=== PATIENT | female | born 1950 | race Caucasian/White ===

== ENCOUNTER 2017-08-18 17:23 | Inpatient (IN) | payer OTHER ==
[~2017-08-18] VITALS: Ht 160 cm; Wt 70.1 kg
--- NOTE | ~2017-08-18 | WRIGHTHP ---
[place], [place] PATIENT HISTORY AND PHYSICAL EXAM [id number] #: [id number] ROOM: 312 DOCTOR: LES FRIEDMAN MD BIRTHDATE: [birth year] DOS: 08/20/2017 INITIAL PSYCHIATRIC EVALUATION CHIEF COMPLAINT: "I have just been so depressed, I take care of everybody, but myself." HISTORY OF PRESENT ILLNESS: This is a 66-year-old black female who was sent here on an involuntary basis from [facility]. The patient had presented to the Emergency Room. They are reporting that she has been feeling increasingly depressed and at wits' end. She has been actively thinking of suicide, stating that this is the only way out of her pain. Her major stressor has been taking care of her elderly mother all on her own and this has taxed her to point where she is not functioning well. She has not been attending to her own ADLs. She has quit taking her psychotropic medicines prescribed by Dr. Reynaldo Eaton, a psychiatrist in the [facility]. During this period of time, she endorses poor sleep and appetite, anergia, anhedonia, hopeless, helpless feelings, crying spells, inability to cope and fleeting suicidal thoughts with a plan. The patient is admitted now to rule out any organic factors to attempt to stabilize on medication, engage in individual and flanagan milieu activity, returning to the least restrictive environment when psychiatrically stable. PAST MEDICAL HISTORY: Remarkable for COPD, hypertension, hyperlipidemia, allergic rhinitis and major depression. The patient denies any alcohol or drug use. ALLERGIES: She does admit to allergies to IVP DYE and PEANUTS. MENTAL STATUS: Upon admission, the patient is alert and oriented to person, place and time. Mood is overwhelmingly depressed. Affect is flat and blunted with a constricted range. She endorses multiple neurovegetative symptoms. There is no hypomania or anton or psychosis noted. Memory for the most part is fully intact. DIAGNOSIS: Major depression, recurrent, severe. PLAN: I have already discontinued her Zoloft due to ineffectiveness, maintained her on her Abilify 15 mg at bedtime. I did start Trintellix 10 mg at bedtime last evening. I will go ahead and increase this now to 20 maximizing the dose. We will continue to engage in individual and flanagan milieu activity, returning then to the least restrictive environment when psychiatrically stable. [place], [place] PATIENT HISTORY AND PHYSICAL EXAM [facility]: [facility] [id number] UNIT #: [id number] ROOM: [facility] DOCTOR: LES FRIEDMAN MD BIRTHDATE: [birth year] LES FRIEDMAN MD CM:HISPHYS:PATIENT HISTORY AND PHYSICAL EXAMINATION LES FRIEDMAN MD 08/20/17 0952 interface
--- NOTE | ~2017-08-18 | DS ---
[place], [place] DISCHARGE SUMMARY [id number] UNIT #: [id number] ROOM: 312 DOCTOR: LES FRIEDMAN MD BIRTHDATE: [birth year] DOS: 08/22/2017 CHIEF COMPLAINT: "I have been so depressed, I take care of everybody, but not myself." HISTORY OF PRESENT ILLNESS: This is a 66-year-old black female who was sent here on an involuntary basis from [facility]. The patient had presented to their Emergency Room stating that she was feeling increasingly depressed and being at wits' end. She has actively been thinking of suicide and felt that this was the only way out of her pain. The patient's major stressor has been taking care of her elderly mother all on her own to the point where she is not now functioning well herself. She has seen Dr. Reynaldo Eaton, a psychiatrist in the [facility] and states that her current medicines just did not seem to be working. She endorsed poor sleep and appetite, anergia, anhedonia, hopeless, helpless feelings, crying spells and inability to cope with fleeting suicidal thoughts and a plan. The patient was admitted to the unit to rule out organic factors, to stabilize on medication, to engage in individual and flanagan milieu activity. PAST MEDICAL HISTORY: Remarkable for COPD, hypertension, hyperlipidemia, allergic rhinitis, major depression. The patient denies any drug or alcohol use and does admit to allergies to IVP DYE and PEANUTS. Her major strengths are she is ambulatory. She is physically fit. She has good verbal skills and a gregarious personality. SUMMARY OF THE HOSPITAL COURSE: The patient was admitted to the unit where she had her Zoloft discontinued and Trintellix 10 mg a day at bedtime was started. She was maintained on Abilify. However, she continued to not sleep and stated that this was a major issue for her, at which point Trintellix was discontinued in lieu of Remeron. She slept extremely well, in fact she stated that this was the best sleep she has had in over a month. She did feel much better with the Remeron and voiced a readiness to go back home, so she can tackle what was on her plate and be able to help her family. She is going to go ahead and follow with Dr. Reynaldo Eaton. She has an excellent working relationship with him. MENTAL STATUS AT DISCHARGE: The patient is alert and oriented. Mood does seem to be strongly trending towards euthymia. Affect is more appropriate. There is no anton or hypomania. There are no auditory or visual hallucinations. No delusions, no paranoia. Short, intermediate and long-term memories are intact. FINAL DIAGNOSIS AT DISCHARGE: Major depression, recurrent, severe. PLAN: Her prescriptions have been e scribed to [facility]. She will follow up with Dr. Reynaldo Eaton. She is medically and psychiatrically stable. Her biopsychosocial needs are adequately being met by her family and by Dr. Eaton and his office staff. [place], [place] DISCHARGE SUMMARY NAME: [facility] FL[facility]ES [facility] [id number] UNIT #: [id number] ROOM: [facility] DOCTOR: LES FRIEDMAN MD BIRTHDATE: [birth year] LES FRIEDMAN MD CM:DISCHARG [id number] LES FRIEDMAN MD 08/22/17 1143 interface
--- NOTE | ~2017-08-18 | PR ---
[place], [place] PROGRESS NOTE [id number] UNIT #: [id number] ROOM: 312 DOCTOR: LES FRIEDMAN MD BIRTHDATE: [birth year] DOS: 08/21/2017 CHIEF COMPLAINT: "I guess I am willing to stay another day." SUMMARY OF THE VISIT: The patient was interviewed as she was sitting engaging in activity with many female peers. She stopped and engaged in conversation with me. She did report to me that she got absolutely no sleep whatsoever last night. She traces some of this to her allergies and feels that that is what kept her up at night. She is willing to stay longer so that she can attempt to get a better night's sleep, so that at least she feels she is able to function more normally during the day. Mood still remains depressed. MENTAL STATUS: She is alert and oriented. Mood does still seem depressed. Affect is flat and blunted, but she brightens upon approach. There is no anton, hypomania or psychosis. Memory is fully intact. PLAN: I will discontinue Trintellix in lieu of Remeron 15 mg at bedtime. This should dramatically improve sleep and appetite. If she does sleep well through the night tonight, we will look to discharge to the least restrictive environment tomorrow. LES FRIEDMAN MD CM:PNTRANS [id number] LES FRIEDMAN MD 08/21/17 1133 interface
[2017-08-18] MEDS ORDERED: OMEGA-31000 M1 PO (17:29)
[2017-08-18] MEDS ORDERED: ZOCOR20 MG PO (17:30)
[2017-08-18] MEDS ORDERED: ABILIFY15 MG PO (17:31)
[2017-08-18] MEDS ORDERED: ASPIR LOW81 MG PO (17:34)
[2017-08-18] MEDS ORDERED: APRESOLINE10 MG PO (17:36)
[2017-08-18] MEDS ORDERED: DIOVAN HCT 3201 EAC1 PO (17:37)
[2017-08-18] MEDS ORDERED: ZOLOFT100 MG PO (17:38)
[2017-08-18] MEDS ORDERED: DULERA 100 MCG8.8 GM INH (17:40)
[2017-08-18] MEDS ORDERED: PROAIR HFA8.5 GM INH (17:51)
[2017-08-18] MEDS ORDERED: DOXYCYCLINE100 M3 PO (17:52)
[2017-08-18] MEDS ORDERED: SINGULAIR10 M1 PO (17:53)
[2017-08-18] MEDS ORDERED: FLONASE ALLERG9.9 ML NAS (17:54)
[2017-08-18] MEDS ORDERED: CLARITIN-D 121 EACH PO (17:55)
[2017-08-18] MEDS ORDERED: VITAMIN D50000 UNIT PO (17:55)
[2017-08-18] MEDS ORDERED: Ventolin 02.5 MG/3 M INH (17:57)
[2017-08-18] MEDS ORDERED: CAFFEINE (18:05)
[2017-08-18] MEDS ORDERED: MAGNESIUM SALICYLATE (18:05)
[2017-08-18] MEDS ORDERED: ACETAMINOPHEN (18:05)
[2017-08-19 12:03] VITALS: BP 126/66
[2017-08-19 20:44] VITALS: BP 132/73
[2017-08-20 06:51] LABS: BASO % 0.6 % (0.0-1.0); EOS # 0.2 10*3/uL (0.0-0.4); EOS % 6.1 % (1.0-4.0); HEMATOCRIT 33.8 % (37.0-47.0); HEMOGLOBIN 10.7 g/dl (12.0-16.0); LYMPH # 1.1 10*3/uL (1.3-4.4); LYMPH % 35.5 % (27.0-41.0); MEAN CELL VOLUME 93.4 fl (81.0-99.0); MEAN CORPUSCULAR HGB 29.6 pg (27.0-31.0); MEAN CORPUSCULAR HGB CONC 31.7 g/dl (33.0-37.0); MEAN PLATELET VOLUME 9.9 fl (9.6-12.3); MONO # 0.3 10*3/uL (0.1-1.0); NEUT # 1.6 10*3/uL (2.3-7.9); NEUT % 49.5 % (47.0-73.0); PLATELET COUNT AUTOMATED 197 10*3/uL (130-400); RED BLOOD COUNT 3.62 10*6/uL (4.10-5.10); RED CELL DISTRI WIDTH 12.8 % (0-14.5); WHITE BLOOD COUNT 3.1 10*3/uL (4.8-10.8)
[2017-08-20 07:22] LABS: ALBUMIN 3.2 gm/dl (3.1-4.5); ALKALINE PHOSPHATASE 43 U/L (45-117); BUN 9 mg/dl (7-24); CHLORIDE 104 mmol/L (98-107); CHOLESTEROL 146 mg/dL (<200); CREATININE 0.85 mg/dL (0.55-1.02); HDL CHOLESTEROL 34 mg/dl (40-60); LDL CHOLESTEROL 87 mg/dL (9-159); POTASSIUM 2.9 mmol/L (3.5-5.1); SGOT/AST 22 IU/L (3-35); SGPT/ALT 22 U/L (12-78); SODIUM 143 mmol/L (136-145); TOTAL PROTEIN 6.5 gm/dL (6.4-8.2); TRIGLYCERIDES 125 mg/dl (<150); VLDL CHOLESTEROL 25 mg/dL (6-40)
[2017-08-20 07:28] LABS: THYROID STIM HORMONE (HS) 0.561 uIU/ml (0.358-4.75)
[2017-08-20 07:47] VITALS: BP 124/70
[2017-08-20 08:57] LABS: VITAMIN D, 25-HYDROXY 71.9 ng/mL (30-100)
[2017-08-20 20:00] VITALS: BP 123/72
[2017-08-21 02:44] LABS: BILIRUBIN NEGATIVE (NEGATIVE); BLOOD NEGATIVE (NEGATIVE); CLARITY CLEAR (CLEAR); COLOR YELLOW (YELLOW); GLUCOSE NEGATIVE (NEGATIVE); KETONE NEGATIVE (NEGATIVE); LEUKO ESTERASE NEGATIVE (NEGATIVE); NITRITE NEGATIVE (NEGATIVE); SPECIFIC GRAVITY <= 1.005 (1.005-1.030); UROBILINOGEN 0.2 E.U./dl (0.2-1.0)
[2017-08-21 03:04] LABS: EPITHELIAL CELLS 15-20; RBC 0-2 rbc/hpf (0-2); WBC 0-2 wbc/hpf (0-5)
[2017-08-21 07:54] VITALS: BP 128/69
[2017-08-21 21:25] VITALS: BP 139/73
[2017-08-22 07:52] VITALS: BP 135/85
[2017-08-22] MEDS ORDERED: MIRTAZAPINE15 M2 PO (11:11)
[2017-08-22] MEDS ORDERED: ARIPIPRAZOLE15 MG PO (11:11)
== END 2017-08-22 13:47 | disposition home or self-care (01) | DRG 885 ==
LOC: 3N 17:23
PROVIDERS: Psychiatry & Neurology Psychiatry
DX: F33.2 Major depressive disorder, recurrent severe without psychotic features (principal); J44.9 Chronic obstructive pulmonary disease, unspecified; E78.5 Hyperlipidemia, unspecified; I10 Essential (primary) hypertension; J30.2 Other seasonal allergic rhinitis; Z88.0 Allergy status to penicillin; Z91.041 Radiographic dye allergy status; Z79.899 Other long term (current) drug therapy; Z83.3 Family history of diabetes mellitus; Z82.3 Family history of stroke; Z80.9 Family history of malignant neoplasm, unspecified; Z79.82 Long term (current) use of aspirin